=== PATIENT | male | born 1990 | race Caucasian/White ===

== ENCOUNTER 2016-06-24 02:03 | Emergency (ER) | payer SELFPAY ==
[~2016-06-24] VITALS: Ht 167.6 cm; Wt 75.0 kg
[~2016-06-24 02:03] MED LIST: CLIN1CAP6 PO
[2016-06-24 02:05] VITALS: BP 153/106; PULSE 82; RESP 16; TEMP 98.5; O2SAT 100
[2016-06-24 02:12] VITALS: BP 148/95; PULSE 72; RESP 18; TEMP 98.4; O2SAT 99
[2016-06-24] MEDS ORDERED: SODIUM CHLOR 0.9% 1000 ML INJ 1,000 ML IV SCH (02:14)
[2016-06-24] MEDS ORDERED: SODIUM CHLORIDE 0.9% FLUSH 10 ML FLUSH IV FLUSH PRN (02:15)
[2016-06-24] MEDS ORDERED: ALUMINUM/MAGNESIUM/SIMETH 30 ML CUP PO ONE (02:15)
[2016-06-24] MEDS ORDERED: LIDOCAINE VISCOUS 2% SOLN 15 ML UDC PO ONE (02:15)
[2016-06-24] MEDS ORDERED: ONDANSETRON HCL 4 MG/2 ML VIAL IVP ONE (02:15)
[2016-06-24] MEDS ORDERED: MORPHINE SULFATE 8 MG/ML INJ IV PUSH ONE (02:15)
[2016-06-24 02:25] VITALS: O2SAT 100
[2016-06-24 02:53] LABS: AUTOMATED NEUTROPHIL # 8.6 TH/MM3 (1.8-7.7); BASOPHIL % 0.1 % (0.0-2.0); EOSINOPHIL # 0.2 TH/MM3 (0-0.4); EOSINOPHIL % 1.3 % (0.0-4.0); HEMATOCRIT 44.7 % (39.0-51.0); HEMO FLAGS DIFF FINAL; LYMPH % 27.5 % (9.0-44.0); LYMPHOCYTE # 3.7 TH/MM3 (1.0-4.8); MEAN CELL VOLUME 88.7 FL (80.0-100.0); MEAN CORPUSCULAR HEMOGLOBIN 30.3 PG (27.0-34.0); MEAN CORPUSCULAR HGB CONC 34.2 % (32.0-36.0); NEUT % 64.1 % (16.0-70.0); PLATELET COUNT 337 TH/MM3 (150-450); RED BLOOD COUNT 5.04 MIL/MM3 (4.50-5.90); RED CELL DISTRIBUTION WIDTH 12.6 % (11.6-17.2); WHITE BLOOD COUNT 13.4 TH/MM3 (4.0-11.0)
[2016-06-24 03:18] LABS: ALKALINE PHOSPHATASE 80 U/L (45-117); TOTAL BILIRUBIN ADULT 0.5 MG/DL (0.2-1.0)
[2016-06-24 03:35] LABS: ALT (GPT) 25 U/L (12-78); ANION GAP 7 MEQ/L (5-15); AST (GOT) 23 U/L (15-37); BICARBONATE 27.5 MEQ/L (21.0-32.0); BLOOD UREA NITROGEN 8 MG/DL (7-18); CHLORIDE 104 MEQ/L (98-107); GLOMERULAR FILTRATION RATE 87 ML/MIN (>89); SODIUM (NA) 138 MEQ/L (136-145)
[2016-06-24 03:48] LABS: BLOOD, URINE NEG (NEG); GLUCOSE,URINE NEG (NEG); KETONE, URINE NEG (NEG); NITRITE,URINE NEG (NEG); URINE COLOR LIGHT-YELLOW (YELLW/STRAW)
[2016-06-24 03:49] LABS: COMMENT (UR) CULT NOT INDICATED; CULTURE IF INDICATED CULT NOT INDICATED
--- NOTE | 2016-06-24 05:03 | PD ---
HPI Chief Complaint: Chest Pain Time Seen by Provider: 02:14 Travel History International Travel<30 days: No Contact w/Intl Traveler<30days: No Traveled to known affect area: No History of Present Illness HPI Patient's 25. He arrives to the ER complaining of chest pain and abdominal pain. Started about 2-1/2 hours ago. It started while he was in bed. He states the pain can be severe. He's had nausea vomiting diarrhea. He reports 3 episodes of vomiting. Onset gradual. 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 HEAD: Atraumatic. Normocephalic. EYES: Pupils equal and round. No scleral icterus. No injection or drainage. ENT: No nasal bleeding or discharge. Mucous membranes pink and moist. NECK: Trachea midline. No JVD. CARDIOVASCULAR: Regular rate and rhythm. RESPIRATORY: No accessory muscle use. Clear to auscultation. Breath sounds equal bilaterally. GASTROINTESTINAL: Minimal TTP RUQ. Soft. No peritoneal sign. MUSCULOSKELETAL: Extremities without clubbing, cyanosis, or edema. No obvious deformities. NEUROLOGICAL: Awake and alert. No obvious cranial nerve deficits. Motor grossly within normal limits. Five out of 5 muscle strength in the arms and legs. Normal speech. PSYCHIATRIC: Appropriate mood and affect; insight and judgment normal. Data Data Last Documented VS Vital Signs Date Time Temp Pulse Resp B/P Pulse Ox O2 Delivery O2 Flow Rate FiO2 06/24/16 02:25 100 Room Air 06/24/16 02:12 20 06/24/16 02:12 98.4 72 148/95 Orders Complete Blood Count With Diff (06/24/16 02:14) Comprehensive Metabolic Panel (06/24/16 02:14) Lipase (06/24/16 02:14) Lactic Acid (06/24/16 02:14) Urinalysis - C+S If Indicated (06/24/16 02:14) Iv Access Insert/Monitor (06/24/16 02:14) Ecg Monitoring (06/24/16 02:14) Oximetry (06/24/16 02:14) Ondansetron Inj (Zofran Inj) (06/24/16 02:15) Sodium Chlor 0.9% 1000 Ml Inj (Ns 1000 M (06/24/16 02:14) Sodium Chloride 0.9% Flush (Ns Flush) (06/24/16 02:15) Morphine Inj (Morphine Inj) (06/24/16 02:15) Al-Mag Hy-Si 40-40-4 Mg/Ml Liq (Mag-Al P (06/24/16 02:15) Lidocaine 2% Viscous (Xylocaine 2% Visco (06/24/16 02:15) Chest, Single Ap (06/24/16 03:43) Labs Laboratory Tests Test 06/24/16 06/24/16 02:28 03:30 White Blood Count 13.4 TH/MM3 Red Blood Count 5.04 MIL/MM3 Hemoglobin 15.3 GM/DL Hematocrit 44.7 % Mean Corpuscular Volume 88.7 FL Mean Corpuscular Hemoglobin 30.3 PG Mean Corpuscular Hemoglobin 34.2 % Concent Red Cell Distribution Width 12.6 % Platelet Count 337 TH/MM3 Mean Platelet Volume 7.0 FL Neutrophils (%) (Auto) 64.1 % Lymphocytes (%) (Auto) 27.5 % Monocytes (%) (Auto) 7.0 % Eosinophils (%) (Auto) 1.3 % Basophils (%) (Auto) 0.1 % Neutrophils # (Auto) 8.6 TH/MM3 Lymphocytes # (Auto) 3.7 TH/MM3 Monocytes # (Auto) 0.9 TH/MM3 Eosinophils # (Auto) 0.2 TH/MM3 Basophils # (Auto) 0.0 TH/MM3 CBC Comment DIFF FINAL Differential Comment Sodium Level 138 MEQ/L Potassium Level 4.0 MEQ/L Chloride Level 104 MEQ/L Carbon Dioxide Level 27.5 MEQ/L Anion Gap 7 MEQ/L Blood Urea Nitrogen 8 MG/DL Creatinine 1.03 MG/DL Estimat Glomerular Filtration 87 ML/MIN Rate Random Glucose 105 MG/DL Lactic Acid Level 1.3 mmol/L Calcium Level 9.2 MG/DL Total Bilirubin 0.5 MG/DL Aspartate Amino Transf 23 U/L (AST/SGOT) Alanine Aminotransferase 25 U/L (ALT/SGPT) Alkaline Phosphatase 80 U/L Total Protein 7.9 GM/DL Albumin 4.4 GM/DL Lipase 162 U/L Urine Color LIGHT-YELLOW Urine Turbidity CLEAR Urine pH 6.0 Urine Specific [place] 1.008 Urine Protein NEG mg/dL Urine Glucose (UA) NEG mg/dL Urine Ketones NEG mg/dL Urine Occult Blood NEG Urine Nitrite NEG Urine Bilirubin NEG Urine Urobilinogen LESS THAN 2.0 MG/DL Urine Leukocyte Esterase NEG Urine RBC LESS THAN 1 /hpf Microscopic Urinalysis Comment CULT NOT INDICATED MDM Medical Decision Making Medical Screen Exam Complete: Yes Emergency Medical Condition: Yes Medical Record Reviewed: Yes Differential Diagnosis Constipation, Gastritis, Acute Cholecystitis, Biliary Colic, Pancreatitis, PEDRO , Hepatitis, Bowel Obstruction, Cystitis, Mesenteric Ischemia, AAA, Appendicitis , Renal Stone/Hydronephrosis, GERD, perforated viscous Narrative Course CBC & BMP Diagram 06/24/16 02:28 LFTs normal Lipase normal lactic acid normal Urinalysis normal Chest x-ray shows no acute cardiopulmonary disease The patient is resting comfortably and feels better, is alert and in no distress. The patients results and examination findings were discussed. The repeat examination is unremarkable and benign. The history, exam, diagnostic testing, and current condition do not suggest any significant pathology to warrant further testing, continued ED treatment, admission, or surgical evaluation at this point. The vital signs have been stable. The patient does not have uncontrollable pain, intractable vomiting, or other significant symptoms. The patient's condition is stable and appropriate for discharge. The patient will pursue further outpatient evaluation with a primary care physician or other designated or consulting physician as indicated in the discharge instructions. The patient expressed understanding and was agreeable with this plan. Diagnosis Primary Impression: Abdominal pain Qualified Code: R10.9 - Abdominal pain, unspecified location Additional Impression: Chest pain Qualified Code: R07.9 - Chest pain, unspecified type Referrals: Primary Care Physician 2 days Additional Instructions: You have a choice when it comes to health care, and we are glad that you chose [email or web address]. Hopefully, we have met your expectations on today's visit. You are welcome to return to [email or web address] at any time, as we are committed to meeting the health care needs of our community. Med/Other Pt SpecificInfo: Prescription(s) given Scripts Ondansetron Odt (Zofran Odt)4 Mg Tab4 Mg SL Q8HR PRN (Nausea/Vomiting) #10 TAB Ref 0 Prov:Arjun Wyatt MD 06/24/16 Disposition: 01 DISCHARGE HOME Condition: Stable Arjun Wyatt MD Jun 24, 2016 05:03
--- NOTE | 2016-06-24 05:24 | RADRPT ---
EXAM DATE/TIME: 06/24/2016 04:57 [facility] COMPARISON: No previous studies available for comparison. INDICATIONS : Chest pain. MEDICAL HISTORY : None. SURGICAL HISTORY : None. ENCOUNTER: Initial ACUITY: 2 days PAIN SCORE: 6/10 LOCATION: Bilateral chest FINDINGS: A single view of the chest demonstrates the lungs to be symmetrically aerated without evidence of mas s, infiltrate or effusion. The cardiomediastinal contours are unremarkable. Osseous structures are intact. CONCLUSION: Normal examination. Ascencion Carrillo Jr., MD on June 24, 2016 at 5:22 Board Certified Radiologist. This report was verified electronically.
[2016-06-24] MEDS ORDERED: ZOFR4TAB3 SL (05:39)
[2016-06-24 06:21] VITALS: BP 120/64; PULSE 71; RESP 18; TEMP 98.1; O2SAT 98
== END 2016-06-24 06:50 | disposition home or self-care (01) ==
LOC: NEPC 02:03
DX: R10.9 Unspecified abdominal pain (principal); R07.9 Chest pain, unspecified
CPT/HCPCS: 71010; 80053; 81001; 83605; 83690; 85025; 96374; 96375; 99285; J2270; J2405; J7030

== ENCOUNTER 2016-07-21 20:12 | Emergency (ER) | payer OTHER ==
[~2016-07-21] VITALS: Ht 167.6 cm; Wt 72.7 kg
[~2016-07-21 20:12] MED LIST changes: -CLIN1CAP6 PO; +ZOFR4TAB3 SL
[2016-07-21 20:20] VITALS: BP 118/64; PULSE 73; RESP 18; TEMP 98.7; O2SAT 96
--- NOTE | 2016-07-21 20:23 | PD ---
HPI Chief Complaint: [facility] ACT Time Seen by Provider: 20:23 Travel History International Travel<30 days: No Contact w/Intl Traveler<30days: No Traveled to known affect area: No History of Present Illness HPI 25-year-old male with a reported history of stomach cancer presents to the emergency department under a Herman act. Patient states that he was found sleeping outside of a gas station and was difficult to arouse so the police brought him here. Patient states he does not drink or use drugs. He states that he is homeless and finally got a chance to fall asleep and was sleeping very deeply. Denies suicidal or homicidal ideations. Patient has no other symptoms to report. 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 SKIN: Focused skin assessment warm/dry. HEAD: Atraumatic. Normocephalic. EYES: Pupils equal and round. No scleral icterus. No injection or drainage. ENT: No nasal bleeding or discharge. Mucous membranes pink and moist. NECK: Trachea midline. No JVD. CARDIOVASCULAR: Regular rate and rhythm. No murmur appreciated. RESPIRATORY: No accessory muscle use. Clear to auscultation. Breath sounds equal bilaterally. GASTROINTESTINAL: Abdomen soft, non-tender, nondistended. Hepatic and splenic margins not palpable. MUSCULOSKELETAL: No obvious deformities. No clubbing. No cyanosis. No edema. NEUROLOGICAL: Awake and alert. No obvious cranial nerve deficits. Motor grossly within normal limits. Normal speech. Data Data Last Documented VS Vital Signs Date Time Temp Pulse Resp B/P Pulse Ox O2 Delivery O2 Flow Rate FiO2 07/22/16 01:08 70 14 118/67 98 Room Air 07/21/16 20:20 98.7 MDM Medical Decision Making Medical Screen Exam Complete: Yes Emergency Medical Condition: Yes Medical Record Reviewed: Yes Differential Diagnosis Alcohol abuse versus substance abuse versus mood disorder versus personality disorder Narrative Course 25-year-old male presents to the emergency department under Herman act. Patient states that he has not been drinking alcohol today, rather he fell asleep for the first time in a while. He denies suicidal homicidal ideations. He appears without distress. I discussed with the patient options and outpatient resources to help if he is indeed abusing alcohol. He adamantly denies this. Patient will be allowed to stay here until he can identify a safe ride at home or it is safe for him to leave. Diagnosis Primary Impression: History of alcoholism Referrals: [facility] (Out patient) Patient Instructions: Alcohol Dependence (ED), General Instructions Additional Instructions: Follow-up with the primary care provider Return immediately with any acute worsening of symptoms Med/Other Pt SpecificInfo: No Meds Exist/No RX given Scripts No Active Prescriptions or Reported Meds Disposition: 01 DISCHARGE HOME Condition: Stable MooreMichael renstephanie SALOMON July 21, 2016 20:23
[2016-07-22 01:08] VITALS: BP 118/67; PULSE 70; RESP 14; O2SAT 98
== END 2016-07-22 06:24 | disposition home or self-care (01) ==
LOC: NEPD 20:12
DX: F10.20 Alcohol dependence, uncomplicated (principal)
CPT/HCPCS: 99284